=== PATIENT | male | born 1995 | race Caucasian/White ===

== ENCOUNTER → 2021-03-08 11:25 | Outpatient (BNVA) | payer OTHER, MEDICAID, SELFPAY | PROVIDERS: Family Provider Family Medicine; PCP Nurse Practitioner; Visit Provider Nurse Practitioner Family | DX: Z00.00 Encounter for general adult medical examination without abnormal findings (principal); F90.9 Attention-deficit hyperactivity disorder, unspecified type | CPT/HCPCS: 80053; 80061 ==

== ENCOUNTER 2021-08-16 20:44 | Emergency (ER) | payer BC, MEDICAID, SELFPAY ==
[2021-08-16 20:56] VITALS: BP 122/62; PULSE 108; RESP 18; TEMP 37.9; O2SAT 99; BMI 25.5
--- NOTE | 2021-08-16 21:08 | XRR_ITS ---
PROCEDURE INFORMATION: Exam: XR Chest Exam date and time: 08/16/2021 9:26 PM Age: 26 years old Clinical indication: Cough and dyspnea; Additional info: Covid symptoms TECHNIQUE: Imaging protocol: XR of the chest. Views: 1 view. COMPARISON: No relevant prior studies available. FINDINGS: Lungs: Hyperaerated lungs consistent with deep inspiratory effort vs significant reactive airway disease vs [id number] COPD . Pleural spaces: Unremarkable. No pleural effusion. No pneumothorax. Heart/Mediastinum: Unremarkable. No cardiomegaly. Bones/joints: Unremarkable. XR/XR chest 1V portable [id number] IMPRESSION: Hyperaerated lungs consistent with deep inspiratory effort vs significant reactive airway disease vs [id number] COPD .
== END 2021-08-17 00:19 | disposition left against medical advice (07) ==
LOC: ER 20:48
PROVIDERS: Emergency Provider Family Medicine
DX: Z53.21 Procedure and treatment not carried out due to patient leaving prior to being seen by health care provider (principal)
CPT/HCPCS: 71045